=== PATIENT | female | born 1985 | race Caucasian/White ===

== ENCOUNTER 2018-02-04 18:40 | Emergency (ER) | payer BC ==
[2018-02-04] MEDS ORDERED: HYDROCODONE/APAP 5/325MG TABLET PO ONE (18:47)
[2018-02-04] MEDS ORDERED: AMOXICILLIN/POTASSIUM CLAV 875MG/125MG TABLET PO ONE (18:47)
[2018-02-04] MEDS ORDERED: Diph,Pert(Acell),Tet Vac 0.5 ML SYR IM ONE (18:47)
--- NOTE | 2018-02-04 18:52 | Emergency Department Record ---
History of Present Illness - General Stated Complaint: DOG BITE Time Seen by Provider: 02/04/18 18:47 Source: Patient Mode of Arrival: Ambulatory Limitations: No limitations - History of Present Illness Initial Comments: 32 yo female presents to ED for evaluation of multiple wounds to the left lower extremity and right middle finger resulting from several bites from a neighbor' s dog. Patient reports that the animal was attacking her dog, she opened the animal's teeth to remover her dog when the animal; attacked her. Patient reports that her tetanus is not currently UTD. Patient denies other injuries on examination, and denies health problems at her baseline. MD Complaint: Animal bite Onset/Timin -: Minutes(s) Left: Lower Leg, Right: Hand Animal: Dog Description: Household pet Mechanism: Bite Associated Symptoms: None Treatments Prior to Arrival: Pressure - Related Data Home Medications Medication Instructions Recorded Confirmed Last Taken Etonogestrel [Nexplanon] 68 mg SQ DAILY 02/04/18 02/04/18 02/04/18 Previous Rx's Medication Instructions Recorded Amoxicillin/Potassium Clav 1 tab PO BID #19 tab 02/04/18 [Augmentin 875-125 Tablet] Allergies Allergy/AdvReac Type Severity Reaction Status Date / Time cyclobenzaprine AdvReac ALTERED Verified 02/04/18 18:56 [From Flexeril] MENTAL STATUS Review of Systems Constitutional: Denies: Chills, Fever, Malaise, Night sweats Eyes: Denies: Eye discharge, Eye pain ENT: Denies: Congestion, Ear pain, Epistaxis Respiratory: Denies: Cough, Dyspnea Cardiovascular: Denies: Chest pain, Dyspnea on exertion Endocrine: Denies: Fatigue, Heat or cold intolerance Gastrointestinal: Denies: Abdominal pain, Nausea, Vomiting Genitourinary: Denies: Incontinence, Retention Musculoskeletal: Denies: Arthralgia, Back pain Skin: Reports: Other (Multiple dog bites to the lower extremity, right middle fingers). Denies: Bruising, Change in color Neurological: Denies: Abnormal gait, Confusion, Headache, Seizure Psychiatric: Denies: Anxiety Hematological/Lymphatic: Denies: Anemia, Blood Clots Physical Exam - General General Appearance: Alert, Oriented x3, Cooperative Limitations: No limitations - Head Head exam: Atraumatic, Normocephalic, Normal inspection Head exam detail: negative: Abrasion, Contusion, Schmitt's sign, General tenderness, Hematoma, Laceration - Eye Eye exam: Normal appearance. negative: Conjunctival injection, Periorbital swelling, Periorbital tenderness, Scleral icterus - ENT Ear exam: negative: Auricular hematoma, Auricular trauma Nasal Exam: negative: Active bleeding, Discharge, Dried blood, Foreign body Mouth exam: negative: Drooling, Laceration, Muffled voice, Tongue elevation - Neck Neck exam: Normal inspection. negative: Meningismus, Tenderness - Respiratory Respiratory exam: Normal lung sounds bilaterally. negative: Rales, Respiratory distress, Rhonchi, Stridor - Cardiovascular Cardiovascular Exam: Regular rate, Normal rhythm, Normal heart sounds - GI/Abdominal GI/Abdominal exam: Soft. negative: Rebound, Rigid, Tenderness - Rectal Rectal exam: Deferred - exam: Deferred - Extremities Extremities exam: Tenderness, Other ((3) significant lower extremity wounds on examination, see procedure notes for descriptions.). negative: Calf tenderness , Pedal edema - Back Back exam: Denies: CVA tenderness (R), CVA tenderness (L) - Neurological Neurological exam: Alert, Normal gait, Oriented X3 - Psychiatric Psychiatric exam: Normal affect, Normal mood - Skin Skin exam: Normal color. negative: Abrasion Type of lesion: negative: abrasion Course - Reevaluation(s) Reevaluation #1: 02/04/18 20:01: Lower extremity radiograph: No FBs present Wound #1: 1.5 cm laceration to the posterior left lower extremity, bleeding controlled. Wound was irrigated extensively under jet irrigation (500 mL) and cleaned and prepped in sterile fashion, no residual FB identified on examination. Wound was anesthetized with 1.0 mL of 1% Lidocaine with epinephrine (3 mL)with good anesthesia, and the laceration was repaired with (4-0 Prolene) sutures (#2) in interrupted fashion. Patient tolerated the procedure well without complications. Wound #2: 1.0 cm laceration to the lateral left lower extremity, bleeding controlled. Wound was irrigated extensively under jet irrigation (250 mL) and cleaned and prepped in sterile fashion, no residual FB identified on examination. Wound was anesthetized with 1.0 mL of 1% Lidocaine with epinephrine (3 mL)with good anesthesia, and the laceration was repaired with (4-0 Prolene) sutures (#2) in interrupted fashion. Patient tolerated the procedure well without complications. Wound #3: 2.5 cm laceration to the posterior left lower extremity, bleeding controlled. Wound was irrigated extensively under jet irrigation (500 mL) and cleaned and prepped in sterile fashion, no residual FB identified on examination. Wound was anesthetized with 1.0 mL of 1% Lidocaine with epinephrine (3 mL)with good anesthesia, and the laceration was repaired with (4-0 Prolene) sutures (#3) in interrupted fashion. Patient tolerated the procedure well without complications. Wound #4: 1.0 cm laceration to the posterior left lower extremity, bleeding controlled. Wound was irrigated extensively under jet irrigation (500 mL) and cleaned and prepped in sterile fashion, no residual FB identified on examination. Wound was anesthetized with 1.0 mL of 1% Lidocaine with epinephrine (3 mL)with good anesthesia, and the laceration was repaired with (4-0 Prolene) sutures (#1) in interrupted fashion. Patient tolerated the procedure well without complications. Patient was counseled extensively on the risk of infection with puncture wounds resulting from dog bites despite jet irrigation and antibiotics. Patient was instructed to return to ED for any worsening of her pain symptoms, redness, drainage from wounds, or any general worsening of her symptoms. Animal control was contacted, and the animal can be observed for any abnormal behavior. Disposition Disposition: Discharge Clinical Impression: Dog bite of left lower leg Qualifiers: Encounter type: initial encounter Qualified Code(s): S81.852A - Open bite, left lower leg, initial encounter Dog bite of right hand Qualifiers: Encounter type: initial encounter Qualified Code(s): S61.451A - Open bite of right hand, initial encounter Disposition: Home, Self-Care Condition: (2) Stable Instructions: Animal Bite (ED) Additional Instructions: Return to ED if your symptoms worsen or if you have any concerns. Augmentin as directed. Sutures out in 10-14 days Follow-up with your family doctor in 1-3 days as directed. Prescriptions: Amoxicillin/Potassium Clav [Augmentin 875-125 Tablet] 1 tab PO BID #19 tab Forms: Patient Portal Access Time of Disposition: 20:00 Quality - Quality Measures Quality Measures: N/A - Blood Pressure Screening Does Patient Have Any of the Following: No Blood Pressure Classification: Hypertensive Reading Systolic Measurement: 106 Diastolic Measurement: 97 Screening for High Blood Pressure: < First Hypertensive BP, F/U Documented > [ G8950] First Hypertensive Follow-up Interventions: Referral to alternative/primary care provider.
--- NOTE | 2018-02-06 10:26 | RADIOLOGY REPORT ---
EXAM: LEFT LOWER LEG HISTORY: PATIENT HAS A HISTORY OF DOG BITE. TECHNIQUE: Two views of the left leg are provided without comparison examinations. FINDINGS: There is no radiographic evidence of a fracture or dislocation of the left tibia and fibula. There are lucencies identified within the posterior, medial aspect of the distal left leg compatible with puncture wounds. No radiopaque foreign bodies are identified. IMPRESSION: PUNCTURE WOUNDS ARE IDENTIFIED WITHIN THE SOFT TISSUE OF THE DISTAL LEFT LEG DISCUSSED ABOVE WITHOUT RADIOGRAPHIC EVIDENCE OF A RADIOPAQUE FOREIGN BODY. JOB NUMBER: [id number] [facility]
== END 2018-02-04 20:19 | disposition home or self-care (01) ==
LOC: ER 18:40
DX: S81.812A Laceration without foreign body, left lower leg, initial encounter (principal); S61.212A Laceration without foreign body of right middle finger without damage to nail, initial encounter; W54.0XXA Bitten by dog, initial encounter; Y92.009 Unspecified place in unspecified non-institutional (private) residence as the place of occurrence of the external cause
CPT/HCPCS: 12032; 12041; 90715; 96372; 99284

== ENCOUNTER 2018-02-05 20:33 | Emergency (ER) | payer BC ==
[2018-02-05] MEDS ORDERED: AMPICILLIN SODIUM/SULBACTAM NA 3 G in 0.9 % SODIUM CHLORIDE 100ML 100 ML IVPB ONE (21:07)
--- NOTE | 2018-02-05 21:13 | Emergency Department Record ---
History of Present Illness - General Chief Complaint: Wound, check Stated Complaint: DOG BITE 2ND VISIT Time Seen by Provider: 02/05/18 21:07 Source: Patient Mode of arrival: Ambulatory Limitations: No limitations - History of Present Illness Initial Comments: 32 yo female presents to ED for evaluation of worsening redness and swelling of the right middle digit following a dog bite that occurred just over 24 hours ago. Patient denies fevers, chills, nausea, or vomiting symptoms. Patient was started on Augmentin last night following extensive washing of the digits as well. MD Complaint: Wound re-check Onset/Timin -: Days(s) Initial Visit For: Animal bite Returns Today for: Wound recheck Symptoms Since Prior Visit: Worsening pain, Worsening redness, Worsening swelling Associated Symptoms: None Treatments Prior to Arrival: Given antibiotics on initial visit - Related Data Previous Rx's Medication Instructions Recorded Amoxicillin/Potassium Clav 1 tab PO BID #19 tab 02/04/18 [Augmentin 875-125 Tablet] Allergies Allergy/AdvReac Type Severity Reaction Status Date / Time cyclobenzaprine AdvReac ALTERED Verified 02/05/18 20:48 [From Flexeril] MENTAL STATUS Travel Screening - Travel/Exposure Within Last 30 Days Have you traveled within the last 30 days?: No - Travel/Exposure Within Last Year Have you traveled outside the [place] in the last year?: No - Additonal Travel Details Have you been exposed to anyone with a communicable illness?: No - Travel Symptoms Symptom Screening: None Review of Systems Constitutional: Denies: Chills, Fever, Malaise, Night sweats Eyes: Denies: Eye discharge, Eye pain ENT: Denies: Congestion, Ear pain, Epistaxis Respiratory: Denies: Cough, Dyspnea Cardiovascular: Denies: Chest pain, Dyspnea on exertion Endocrine: Denies: Fatigue, Heat or cold intolerance Gastrointestinal: Denies: Abdominal pain, Nausea, Vomiting Genitourinary: Denies: Incontinence, Retention Musculoskeletal: Reports: Myalgia. Denies: Arthralgia, Back pain Skin: Reports: Change in color (redness). Denies: Bruising Neurological: Denies: Abnormal gait, Confusion, Seizure Psychiatric: Denies: Anxiety Hematological/Lymphatic: Denies: Anemia, Blood Clots Past Medical History - SOCIAL HISTORY Smoking Status: Former smoker Alcohol Use: Rare Drug Use: None - RESPIRATORY Hx Respiratory Disorders: No - CARDIOVASCULAR Hx Cardio Disorders: No - NEURO Hx Neuro Disorders: No - GI Hx GI Disorders: No - Hx Genitourinary Disorders: No - ENDOCRINE Hx Endocrine Disorders: No - MUSCULOSKELETAL Hx Musculoskeletal Disorders: Yes - PSYCH Hx Psych Problems: No - HEMATOLOGY/ONCOLOGY Hx Hematology/Oncology Disorders: No Family Medical History Any Significant Family History?: No Hx Anxiety: Father Hx Diabetes: Father Hx HTN: Father, Brother/Sister Hx Resp Disorders: Brother/Sister Physical Exam - General General Appearance: Alert, Oriented x3, Cooperative Limitations: No limitations - Head Head exam: Atraumatic, Normocephalic, Normal inspection Head exam detail: negative: Abrasion, Contusion, Schmitt's sign, General tenderness, Hematoma, Laceration - Eye Eye exam: Normal appearance. negative: Conjunctival injection, Periorbital swelling, Periorbital tenderness, Scleral icterus - ENT Ear exam: negative: Auricular hematoma, Auricular trauma Nasal Exam: negative: Active bleeding, Discharge, Dried blood, Foreign body Mouth exam: negative: Drooling, Laceration, Muffled voice, Tongue elevation - Neck Neck exam: Normal inspection. negative: Meningismus, Tenderness - Respiratory Respiratory exam: Normal lung sounds bilaterally. negative: Rales, Respiratory distress, Rhonchi, Stridor - Cardiovascular Cardiovascular Exam: Regular rate, Normal rhythm, Normal heart sounds - GI/Abdominal GI/Abdominal exam: Soft. negative: Rebound, Rigid, Tenderness - Rectal Rectal exam: Deferred - exam: Deferred - Extremities Extremities exam: Tenderness, Other. negative: Calf tenderness, Pedal edema - Back Back exam: Denies: CVA tenderness (R), CVA tenderness (L) - Neurological Neurological exam: Alert, Normal gait, Oriented X3 - Psychiatric Psychiatric exam: Normal affect, Normal mood - Skin Skin exam: Erythema, Other (Puncture wound at the DIP with surrounding mild erythema and STS extending to the PIP of the volar aspect of the middle finger) Type of lesion: negative: abrasion Course Vital Signs 02/05/18 20:41 Temperature 98.7 F Pulse Rate [ 83 Pulse Ox Probe] Respiratory 24 Rate Blood Pressure 105/75 [Left Arm] Pulse Ox 98 - Reevaluation(s) Reevaluation #1: 02/05/18 21:13 [facility]-call contacted for transfer for admission following failed outpatient treatment following dog bite. Reevaluation #2: 02/05/18 21:19 Case was discussed with Dr. Schneider, will accept patient for IV antibiotics and hand consultation if symptoms fail to improve. Patient was updated on the plan of care, and appears stable for transfer by private car following bed assignment. Disposition Disposition: Transfer Clinical Impression: Dog bite of right hand Qualifiers: Encounter type: initial encounter Qualified Code(s): S61.451A - Open bite of right hand, initial encounter Disposition: Acute Care Hospital Transfer Transfer To: [facility] Reason For Transfer: Failed outpatient treatment for cellulitis, hand consultation Accepting Physician: Jennie Time Discussed w/Accepting Physician: 21:15 Condition: (2) Stable Forms: Patient Portal Access Time of Disposition: 21:15 Quality - Quality Measures Quality Measures: N/A - Blood Pressure Screening Does Patient Have Any of the Following: No Blood Pressure Classification: Normal BP Reading Systolic Measurement: 105 Diastolic Measurement: 75 Screening for High Blood Pressure: < Normal BP, F/U Not Required > [G8783]
== END 2018-02-05 21:42 | disposition short-term general hospital (02) ==
LOC: ER 20:33
DX: S61.252A Open bite of right middle finger without damage to nail, initial encounter (principal); L03.011 Cellulitis of right finger; W54.0XXA Bitten by dog, initial encounter; Y92.009 Unspecified place in unspecified non-institutional (private) residence as the place of occurrence of the external cause; Z87.891 Personal history of nicotine dependence
CPT/HCPCS: 99283 ×2; J0295